=== PATIENT | female | born 1990 ===

== ENCOUNTER 2017-03-13 10:25 | Emergency (ER) | payer OTHER ==
[2017-03-13 10:30] VITALS: RESP 18; TEMP 98.2; O2SAT 100; BMI 25.2
[2017-03-13] MEDS ORDERED: DiphenhydrAMINE 50 mg/ml Inj IVPB STA (10:51)
[2017-03-13] MEDS ORDERED: Sodium Chloride 0.9% 1,000 ML IV ONE (10:51)
[2017-03-13] MEDS ORDERED: Sodium Chloride 0.9% 1,000 ML ONE (10:58)
[2017-03-13] MEDS ORDERED: DiphenhydrAMINE 50 mg/ml Inj ONE (10:58)
--- NOTE | 2017-03-13 11:21 | C.PDOC ---
History Of Present Illness 26 y/o female presents to the ED with complaints of headache and associated nausea since yesterday. Pt reports similar prior headaches. She denies fever, visual changes, dizziness, extremity weakness, sensory changes, slurred speech, facial droop, fever, neck pain/stiffness. Patient tried PO tylenol, had minimal relief. Time Seen by Provider: 03/13/17 10:33 Chief Complaint (Nursing): Headache History Per: Patient History/Exam Limitations: no limitations Onset/Duration Of Symptoms: Hrs Current Symptoms Are (Timing): Still Present Severity: Moderate Quality: "Pain" Associated Symptoms: Nausea. denies: Blurred Vision, Vomiting, Extremity Weakness Past Medical History Reviewed: Historical Data, Nursing Documentation, Vital Signs Vital Signs: Last Vital Signs Temp 98.2 F 03/13/17 10:30 Pulse 94 H 03/13/17 11:26 Resp 18 03/13/17 11:26 BP 137/74 03/13/17 11:26 Pulse Ox 100 03/13/17 11:42 - Medical History PMH: No Chronic Diseases Family History: States: No Known Family Hx - Social History Hx Alcohol Use: No Hx Substance Use: No - Immunization History Hx Tetanus Toxoid Vaccination: No Hx Influenza Vaccination: No Hx Pneumococcal Vaccination: No Review Of Systems Except As Marked, All Systems Reviewed And Found Negative. Constitutional: Negative for: Fever, Chills Eyes: Negative for: Vision Change Cardiovascular: Negative for: Chest Pain, Palpitations Respiratory: Negative for: Cough, Shortness of Breath Gastrointestinal: Positive for: Nausea. Negative for: Vomiting, Abdominal Pain , Diarrhea Neurological: Positive for: Headache. Negative for: Weakness, Numbness, Change in Speech, Dizziness Physical Exam - Physical Exam Appears: Non-toxic, In Acute Distress (mild discomfort) Skin: Warm, Dry, No Rash Head: Atraumatic, Normacephalic Eye(s): bilateral: Normal Inspection, PERRL, EOMI Oral Mucosa: Moist Neck: Normal, Normal ROM, Supple, Other (no meningismus) Cardiovascular: Rhythm Regular Respiratory: Normal Breath Sounds, No Rales, No Rhonchi, No Wheezing Gastrointestinal/Abdominal: Normal Exam, Bowel Sounds, Soft, No Tenderness Extremity: Bilateral: Atraumatic Neurological/Psych: Oriented x3, Normal Speech, Normal Cognition, Normal Cranial Nerves, No Cerebellar Signs, Normal Motor, Normal Sensation ED Course And Treatment O2 Sat by Pulse Oximetry: 100 (room air) Pulse Ox Interpretation: Normal Progress Note: Plan: Upreg POC ordered, was (-). Patient given IV NS bolus, IV reglan and IV benadryl. Reevaluation Time: 11:50 Reassessment Condition: Improved (On reassessment, patient states her headache has resolved and she feels much better. Rx for Fiorcet given, and patient instructed to follow up with PMD/clinic in 1-2 days. She understands she should return to ED if symptoms worsen.) Disposition Counseled Patient/Family Regarding: Diagnosis, Need For Followup, Rx Given - Disposition Referrals: [facility] [Outside] Disposition: HOME/ ROUTINE Disposition Time: 11:50 Condition: STABLE Additional Instructions: SEGUIMIENTO CON PLEITEZ DOCTOR / CLNICA EN 1-2 OVALLE USE LOS MEDICAMENTOS QUE JOSÉ NECESARIOS DEVUELVA A LA KEVIN DE EMERGENCIA SI LOS SNTOMAS EMPEORARAN Prescriptions: Acetaminophen/Butalbital/Caf [Fioricet] 1 tab PO TID PRN #20 tab PRN Reason: Headache Instructions: Migraine Headache (ED) Forms: [employer] (Vincentian) Print Language: ENGLISH - POA Present On Arrival: None - Clinical Impression Clinical Impression: Headache, Migraine - Scribe Statement The provider has reviewed the documentation as recorded by the Mylene Shafer Provider Attestation: All medical record entries made by the Scribe were at my direction and personally dictated by me. I have reviewed the chart and agree that the record accurately reflects my personal performance of the history, physical exam, medical decision making, and the department course for this patient. I have also personally directed, reviewed, and agree with the discharge instructions and disposition.
--- NOTE | 2017-03-13 11:25 | C.PDOC ---
Time Seen by Provider: 03/13/17 10:33 Chief Complaint (Nursing): Headache Past Medical History Vital Signs: Last Vital Signs Temp 98.2 F 03/13/17 10:30 Pulse 75 03/13/17 10:30 Resp 18 03/13/17 10:30 BP 104/69 03/13/17 10:30 Pulse Ox 100 03/13/17 10:30 - Social History Hx Alcohol Use: No Hx Substance Use: No - Immunization History Hx Tetanus Toxoid Vaccination: No Hx Influenza Vaccination: No Hx Pneumococcal Vaccination: No ED Course And Treatment O2 Sat by Pulse Oximetry: 100 Disposition - Disposition Forms: [employer] (Czech)
[2017-03-13 11:28] VITALS: BP 137/74; PULSE 94
== END 2017-03-13 12:10 | disposition home or self-care (01) ==
LOC: C.ER 10:25
DX: G43.909 Migraine, unspecified, not intractable, without status migrainosus (principal)
CPT/HCPCS: 82948; 96360; 99285; J1200; J2765; J7040